=== PATIENT | female | born 1955 | race Caucasian/White ===

== ENCOUNTER 2016-07-31 07:00 | Day surgery (SDC) | payer MEDICARE ==
[~2016-07-31] VITALS: Ht 157.5 cm; Wt 66.0 kg
[2016-07-31] VITALS (8 sets, daily range): BP systolic 100–145; BP diastolic 68–94; PULSE 65–83; RESP 16–20; TEMP 97.7; O2SAT 92–95
[2016-07-31] MEDS ORDERED: BUPR300T PO (07:30)
[2016-07-31] MEDS ORDERED: SIMV20TA PO (07:30)
[2016-07-31] MEDS ORDERED: VENL225T PO (07:30)
[2016-07-31] MEDS ORDERED: LEVO100T5 PO (07:30)
[2016-07-31] MEDS ORDERED: PRAZ2CAP PO (07:30)
[2016-07-31] MEDS ORDERED: GABA600T PO (07:30)
[2016-07-31] MEDS ORDERED: HYDR12.56 PO (07:30)
[2016-07-31] MEDS ORDERED: TRAZ50TA12 PO (07:30)
[2016-07-31] MEDS ORDERED: LIDOCAINE 1%/EPINEPHrine 1:100,000 SOLN 20 ML VIAL ONE (07:59)
[2016-07-31] MEDS ORDERED: METOPROLOL TARTRATE 25 MG TAB PO PRN (08:00)
[2016-07-31] MEDS ORDERED: INSULIN HUMAN REGULAR 1,000 UNITS/10 ML VIAL SQ PRN (08:00)
[2016-07-31] MEDS ORDERED: LACTATED RINGER'S 1000 ML IV SCH (08:00)
[2016-07-31] MEDS ORDERED: SODIUM CHLORID 0.9% 500 ML IV SCH (08:00)
[2016-07-31] MEDS ORDERED: MIDAZOLAM HCL 2 MG/2 ML VIAL ONE (09:10)
--- NOTE | 2016-07-31 09:34 | RADRPT ---
EXAM DATE/TIME: 07/31/2016 08:45 [facility] COMPARISON: No previous studies available for comparison. INDICATIONS : Right lung mass. BIOPSY SITE: Right Anesthesia and pain control was provided by the Anesthesia department. DEVICE(S): 1.) 20 gauge Temno core biopsy needle MEDICAL HISTORY : Hypertension. SURGICAL HISTORY : None. ENCOUNTER: Initial ACUITY: 1 day PAIN SCORE: 0/10 LOCATION: Right chest A total of four core specimen(s) were obtained and sent to the laboratory for pathologic evaluation. PROCEDURE: 1. CT guided lung biopsy. 2. Conscious sedation with continuous EKG and oximetry monitoring. 3. EKG and oximetry remained stable throughout the procedure. Prior to the procedure informed consent was obtained. Any appropriate prior imaging studies were rev iewed. The site was prepped in a sterile fashion. Full sterile technique was used, including cap, mask, jaylan rile gloves and gown and a large sterile sheet. Hand hygiene and 2% chlorhexidine and/or betadine/al cohol prep was utilized per protocol for cutaneous antisepsis. The skin and subcutaneous tissues wer e infiltrated with local anesthetic solution. Anesthesia for sedation an 18 gauge blunt needle was placed down to the lesion in the right upper lob e and 4 cores obtained. Material was sent for culture and pathology.. Follow-up CT scan reveals no pneumothorax. Conscious sedation was performed with the prescribed dosages and duration as above. The patient lucas ated the procedure well and there were no complications. EKG and oximetry remained stable throughout the procedure. The patient was sent to Radiology Outpatient Unit in stable condition. CONCLUSION: Uncomplicated CT guided biopsy. Cole White MD FACR on July 31, 2016 at 9:30 Board Certified Radiologist. This report was verified electronically.
--- NOTE | 2016-07-31 11:49 | RADRPT ---
EXAM DATE/TIME: 07/31/2016 11:24 [facility] COMPARISON: No previous studies available for comparison. INDICATIONS : Status post right lung biopsy. MEDICAL HISTORY : None. SURGICAL HISTORY : None. ENCOUNTER: Initial ACUITY: 1 day PAIN SCORE: 0/10 LOCATION: Right chest FINDINGS: A single frontal expiratory view of the chest was performed. The lungs are symmetrically aerated and clear. No evidence of pneumothorax. Mediastinal structures are in the midline. The cardio-mediastinal contours and bronchopulmonary markings are unremarkable for an expiratory exam . Osseous structures are intact. CONCLUSION: Negative for pneumothorax following biopsy of the mass in the right upper lobe. Cole White MD FACR on July 31, 2016 at 11:47 Board Certified Radiologist. This report was verified electronically.
--- NOTE | 2016-07-31 22:45 | EKG ---
Date Performed: 07/31/2016 Time Performed: 07:51:52 PTAGE: 61 years EKG: Sinus rhythm NORMAL ECG NO PREVIOUS TRACING DOCTOR: Tali Kelly Interpretating Date/Time 07/31/2016 22:43:39
== END 2016-07-31 13:30 | disposition home or self-care (01) ==
LOC: EDSTATUS 07:00 → HRAD 07:00 → HRIP 07:25 → HRAD 13:30
PROVIDERS: ATTEND Family Medicine
DX: R91.8 Other nonspecific abnormal finding of lung field (principal); I10 Essential (primary) hypertension; F17.200 Nicotine dependence, unspecified, uncomplicated
CPT/HCPCS: 32405; 71010; 77012; 87015; 87070; 87102; 87116; 87205; 87206; 88305; 88333; 88341; 88342; 93005; J2250; J3010